=== PATIENT | male | born 1960 | race Two or more races ===

== ENCOUNTER → 2024-12-29 | Outpatient (CLI) | payer OTHER, SELFPAY ==
--- NOTE | 2024-12-29 09:58 | XR_ITS ---
Examination: Foot, left, 3 views Technique: AP, oblique, lateral views foot, 3 views Date and time of exam: December 29, 2024 1026 hours INDICATIONS: Patient fell yesterday with injury to foot, foot pain. FINDINGS: Acute fracture distal aspect proximal phalanx fifth digit without significant displacement IMPRESSION: Acute fracture proximal phalanx fifth digit
== END | disposition home or self-care (01) ==
PROVIDERS: PCP Nurse Practitioner Family; Referring Provider Nurse Practitioner Family; Visit Provider Nurse Practitioner Family
DX: S92.512A Displaced fracture of proximal phalanx of left lesser toe(s), initial encounter for closed fracture (principal); W19.XXXA Unspecified fall, initial encounter
CPT/HCPCS: 73630